=== PATIENT | male | born 1960 | race Caucasian/White ===

== ENCOUNTER 2017-07-28 09:00 | Inpatient (IN) | payer OTHER ==
[2017-07-28] MEDS ORDERED: NACL 0.9% 3 ML SYG IV (12:30)
[2017-07-28] MEDS ORDERED: ZOLPIDEM 5 MG TAB PO (12:30)
[2017-07-28] MEDS ORDERED: ONDANSETRON 4 MG INJ IV (12:30)
[2017-07-28] MEDS ORDERED: DOCUSATE SODIUM 100 MG CAP PO (12:30)
[2017-07-28] MEDS ORDERED: HYDROCODONE/APAP (5/325) TAB PO (12:30)
[2017-07-28] MEDS ORDERED: clonAZEPAM 0.5 MG TAB PO (13:00)
[2017-07-28] MEDS: DIPHENHYDRAMINE 50 MG INJ IV ×2 (13:59→21:02)
[2017-07-28] MEDS: CITALOPRAM 20 MG TAB PO (14:00)
[2017-07-28] MEDS: HYDROCORTISONE 2.5% 20 GM CR TOP ×2 (14:00→20:59)
[2017-07-28] MEDS: SOD CHLORIDE 0.9% 1,000 ML IV ×2 (14:02→22:50)
[2017-07-28] MEDS: DOXYCYCLINE 100 MG in SOD CHLORIDE 0.9% 250 ML IVPB ×2 (14:10→23:08)
[2017-07-28] MEDS: NAPROXEN 500 MG TAB PO (15:35)
[2017-07-28] MEDS: METHYLPREDNISOLONE 40 MG INJ IV (20:58)
[2017-07-28] MEDS: TAMSULOSIN (SR) 0.4 MG CAP PO (20:58)
[2017-07-28] MEDS: LAMOTRIGINE 100 MG TAB PO (20:59)
[2017-07-28] MEDS: morphine 2 MG INJ IV (23:16)
[2017-07-29] MEDS: DIPHENHYDRAMINE 50 MG INJ IV ×2 (03:00→11:59)
[2017-07-29 07:27] LABS: ADD MAN DIFF? NO
[2017-07-29 07:34] LABS: WHITE BLOOD COUNT 10.5 10^3/ul (4.8-10.8)
[2017-07-29 07:34] LABS: ABNORMAL IP MESSAGE 1; BASOPHILS % 0.2 % (0.0-2.0); HEMATOCRIT 43.7 % (42.0-52.0); LYMPHOCYTES # 0.5 10^3/ul (0.8-2.9); LYMPHOCYTES % 4.8 % (15.0-51.0); MEAN CORPUSCULAR HEMOGLOBIN 31.1 pg (29.0-33.0); MEAN CORPUSCULAR HGB CONC 34.3 g/dl (32.0-37.0); MEAN CORPUSCULAR VOLUME 90.7 fl (82.0-101.0); MEAN PLATELET VOLUME 9.8 fl (7.4-10.4); MONOCYTE # 0.1 10^3/ul (0.3-0.9); MONOCYTES % 1.2 % (0.0-11.0); NEUTROPHIL # 9.8 10^3/ul (1.6-7.5); NEUTROPHILS % 92.8 % (39.0-77.0); PLATELET COUNT 130 10^3/UL (140-415); POSITIVE DIFF @See below; RED BLOOD COUNT 4.82 10^6/ul (4.70-6.10); RED CELL DISTRIBUTION WIDTH 13.4 % (11.5-14.5)
[2017-07-29 07:59] LABS: ALANINE AMINOTRANSFERASE 47 IU/L (13-69); ALBUMIN 3.6 g/dl (3.3-4.9); ALBUMIN/GLOBULIN RATIO 1.38; ALKALINE PHOSPHATASE 51 IU/L (42-121); ANION GAP 16 (8-16); ASPARTATE AMINO TRANSFERASE 19 IU/L (15-46); BILIRUBIN,INDIRECT 0.3 mg/dl (0-1.1); BILIRUBIN,TOTAL 0.3 mg/dl (0.2-1.3); BLOOD UREA NITROGEN 19 mg/dl (7-20); CARBON DIOXIDE 24 mmol/L (21-31); CHLORIDE 105 mmol/L (97-110); CHOL/HDL RATIO 3.5 RATIO; CHOLESTEROL 188 mg/dl (100-200); CREATININE 1.03 mg/dl (0.61-1.24); GLUCOSE 164 mg/dl (70-220); HDL CHOLESTEROL 53 mg/dl (28-71); LDL CHOLESTEROL,CALCULATED 117 mg/dl; MAGNESIUM 1.9 mg/dl (1.7-2.5); POTASSIUM 4.2 mmol/L (3.5-5.1); SODIUM 141 mmol/L (135-144); TOTAL PROTEIN 6.2 g/dl (6.1-8.1); TRIGLYCERIDES 89 mg/dl (0-149)
[2017-07-29] MEDS: DOXYCYCLINE 100 MG in SOD CHLORIDE 0.9% 250 ML IVPB (08:06)
[2017-07-29] MEDS: CITALOPRAM 20 MG TAB PO (08:06)
[2017-07-29] MEDS: TAMSULOSIN (SR) 0.4 MG CAP PO ×2 (08:07→20:01)
[2017-07-29] MEDS: HYDROCORTISONE 2.5% 20 GM CR TOP ×2 (08:07→20:02)
[2017-07-29] MEDS: morphine 2 MG INJ IV ×3 (08:07→19:50)
[2017-07-29] MEDS: METHYLPREDNISOLONE 40 MG INJ IV ×2 (08:07→20:02)
[2017-07-29 08:15] LABS: FREE THYROXINE INDEX (Calc) 2.21 ug/ml (0.65-3.89); T3 UPTAKE 35.7 % (23.5-40.5); T4 (THYROXINE) 6.2 ug/dl (5.5-11.0)
[2017-07-29] MEDS: ACETAMINOPHEN 325 MG TAB PO ×2 (11:37→23:52)
[2017-07-29] MEDS ORDERED: ACCU-CHEK XX (17:25)
[2017-07-29] MEDS ORDERED: INSULIN ASPART [NOVOLOG] 3 ML PEN SC (17:55)
[2017-07-29] MEDS: LAMOTRIGINE 100 MG TAB PO (20:01)
[2017-07-29] MEDS: DIPHENHYDRAMINE 25 MG CAP PO (22:05)
[2017-07-30] MEDS: morphine 2 MG INJ IV ×6 (00:47→23:51)
[2017-07-30] MEDS: DIPHENHYDRAMINE 25 MG CAP PO (06:48)
[2017-07-30 08:54] LABS: ADD MAN DIFF? NO
[2017-07-30] MEDS: CITALOPRAM 20 MG TAB PO (08:54)
[2017-07-30] MEDS: TAMSULOSIN (SR) 0.4 MG CAP PO ×2 (08:54→19:38)
[2017-07-30] MEDS: METHYLPREDNISOLONE 40 MG INJ IV (08:54)
[2017-07-30] MEDS: HYDROCORTISONE 2.5% 20 GM CR TOP ×2 (08:54→19:39)
[2017-07-30 09:04] LABS: BASOPHILS % 0.1 % (0.0-2.0); HEMATOCRIT 42.5 % (42.0-52.0); HEMOGLOBIN 14.7 g/dl (14.0-18.0); LYMPHOCYTES % 5.1 % (15.0-51.0); MEAN CORPUSCULAR HEMOGLOBIN 31.3 pg (29.0-33.0); MEAN CORPUSCULAR HGB CONC 34.6 g/dl (32.0-37.0); MEAN CORPUSCULAR VOLUME 90.4 fl (82.0-101.0); MEAN PLATELET VOLUME 10.4 fl (7.4-10.4); MONOCYTE # 0.8 10^3/ul (0.3-0.9); MONOCYTES % 3.9 % (0.0-11.0); NEUTROPHIL # 17.2 10^3/ul (1.6-7.5); NEUTROPHILS % 89.9 % (39.0-77.0); PLATELET COUNT 140 10^3/UL (140-415)
[2017-07-30 09:04] LABS: WHITE BLOOD COUNT 19.2 10^3/ul (4.8-10.8)
[2017-07-30] MEDS: LAMOTRIGINE 100 MG TAB PO (19:39)
[2017-07-31] MEDS: morphine 2 MG INJ IV ×3 (03:58→13:28)
[2017-07-31] MEDS: DIPHENHYDRAMINE 25 MG CAP PO (06:09)
[2017-07-31 07:15] LABS: ADD MAN DIFF? NO
[2017-07-31 07:23] LABS: BASOPHILS % 0.2 % (0.0-2.0); EOSINOPHILS # 0.1 10^3/ul (0.0-0.5); EOSINOPHILS % 0.5 % (0.0-7.0); HEMATOCRIT 41.5 % (42.0-52.0); HEMOGLOBIN 14.2 g/dl (14.0-18.0); LYMPHOCYTES # 2.6 10^3/ul (0.8-2.9); LYMPHOCYTES % 15.5 % (15.0-51.0); MEAN CORPUSCULAR HEMOGLOBIN 31.3 pg (29.0-33.0); MEAN CORPUSCULAR HGB CONC 34.2 g/dl (32.0-37.0); MEAN CORPUSCULAR VOLUME 91.6 fl (82.0-101.0); MEAN PLATELET VOLUME 10.1 fl (7.4-10.4); MONOCYTE # 0.9 10^3/ul (0.3-0.9); MONOCYTES % 5.7 % (0.0-11.0); NEUTROPHIL # 12.7 10^3/ul (1.6-7.5); NEUTROPHILS % 76.7 % (39.0-77.0); PLATELET COUNT 144 10^3/UL (140-415); RED BLOOD COUNT 4.53 10^6/ul (4.70-6.10); RED CELL DISTRIBUTION WIDTH 13.8 % (11.5-14.5)
[2017-07-31 07:23] LABS: WHITE BLOOD COUNT 16.6 10^3/ul (4.8-10.8)
[2017-07-31 07:42] LABS: ANION GAP 12 (8-16); BLOOD UREA NITROGEN 20 mg/dl (7-20); CALCIUM 9.1 mg/dl (8.4-10.2); CARBON DIOXIDE 30 mmol/L (21-31); CHLORIDE 99 mmol/L (97-110); CREATININE 1.03 mg/dl (0.61-1.24); GLUCOSE 159 mg/dl (70-220); POTASSIUM 3.7 mmol/L (3.5-5.1); SODIUM 137 mmol/L (135-144)
[2017-07-31 07:50] LABS: B-TYPE NATRIURETIC PEPTIDE 414 PG/ML (0-125)
[2017-07-31] MEDS: CITALOPRAM 20 MG TAB PO (08:26)
[2017-07-31] MEDS: TAMSULOSIN (SR) 0.4 MG CAP PO (08:26)
[2017-07-31] MEDS: HYDROCORTISONE 2.5% 20 GM CR TOP (08:43)
[2017-07-31] MEDS: NAPROXEN 500 MG TAB PO (15:11)
== END 2017-07-31 18:56 | disposition home or self-care (01) | DRG 607 ==
LOC: TEL 09:00
PROVIDERS: Internal Medicine
DX: R21 Rash and other nonspecific skin eruption (principal); N17.9 Acute kidney failure, unspecified; J98.11 Atelectasis; R06.02 Shortness of breath; R73.9 Hyperglycemia, unspecified
CPT/HCPCS: 71045; 80048; 80053; 80061; 83036; 83735; 83880; 84100; 84436; 84479; 85025; 85378; 93306